=== PATIENT | female | born 1940 | race Caucasian/White ===

== ENCOUNTER 2021-08-09 07:56 | Outpatient (CLI) | payer MEDICARE, SELFPAY ==
[2021-08-09 08:21] LABS: Basophils Absolute Auto 0.04 K/mm3 (0.00-0.10); Basophils Percent Auto 0.5 % (0.0-1.0); Eosinophils Absolute Auto 0.14 K/mm3 (0.02-0.50); Eosinophils Percent Auto 1.9 % (1.0-6.0); Hematocrit 44.3 % (35.0-42.0); Hemoglobin 14.2 g/dL (11.7-13.8); Immature Granulocyte Absolute 0.03 K/mm3 (0.00-0.00); Immature Granulocyte Percent A 0.4 % (0.0-0.0); Lymphocytes Percent Auto 17.4 % (18.0-42.0); Mean Corpuscular HGB Conc 32.1 g/dL (32.0-36.0); Mean Corpuscular Hemoglobin 28.6 pg (27.0-31.0); Mean Corpuscular Volume 89.3 fL (78.0-102.0); Monocytes Absolute Auto 0.47 K/mm3 (0.10-0.90); Monocytes Percent Auto 6.3 % (2.0-11.0); Neutrophils Absolute Auto 5.5 K/mm3 (1.7-7.2); Neutrophils Percent Auto 73.5 % (50.0-70.0); Platelet Count Result 172 K/mm3 (150-420); Red Blood Count 4.96 M/mm3 (4.20-5.40); Red Cell Distribution Width 13.3 % (11.6-14.4); White Blood Count 7.5 K/mm3 (4.8-10.8)
[2021-08-09 09:34] LABS: Alanine Aminotransferase 20 U/L (14-59); Albumin Level 3.7 g/dL (3.4-5.0); Alkaline Phosphatase 91 U/L (46-116); Anion Gap 5 mmol/L (8-16); Aspartate Amino Transferase 13 U/L (15-37); Bilirubin,Total 0.4 mg/dL (0.00-1.00); Blood Urea Nitrogen 14 mg/dL (7-18); Calcium 9.3 mg/dL (8.5-10.1); Carbon Dioxide 29 mmol/L (21-32); Chloride 105 mmol/L (98-108); Cholesterol 204 mg/dL (0-200); Estimated Glomerular Filt Rate > 60; Free T4 Free Thyroxine 0.88 ng/dL (0.76-1.46); Glucose 104 mg/dL (70-99); HDL Direct 49 mg/dL (40-60); LDL Cholesterol Calculated 136 mg/dL (<130); Osmolality Calculated 288 mOsm/kg (285-295); Potassium 4.1 mmol/L (3.5-5.1); Sodium 139 mmol/L (136-145); Thyroid Stimulating Hormone 1.99 uIU/mL (0.36-3.74); Triglycerides 97 mg/dL (0-150); Vitamin B12 650 pg/mL (193-986)
[2021-08-14 14:04] LABS: Vitamin D 25 Hydroxy 33 ng/mL (30-100)
== END 2021-08-09 07:57 | disposition home or self-care (01) ==
PROVIDERS: PCP Internal Medicine; Visit Provider Internal Medicine
DX: E78.5 Hyperlipidemia, unspecified (principal); F03.90 Unspecified dementia, unspecified severity, without behavioral disturbance, psychotic disturbance, mood disturbance, and anxiety; E55.9 Vitamin D deficiency, unspecified; I10 Essential (primary) hypertension
CPT/HCPCS: 36415; 80053; 80061; 82306; 82607; 84439; 84443; 85025

== ENCOUNTER 2024-03-03 15:43 | Outpatient (CLI) | payer MEDICARE, SELFPAY ==
[2024-03-03 16:02] LABS: Basophils Percent Auto 0.4 % (0.2-1.2); Eosinophils Absolute Auto 0.1 K/mm3 (0-0.3); Eosinophils Percent Auto 1.7 % (0-4.4); Hematocrit 40.8 % (37.0-47.0); Hemoglobin 12.8 g/dL (12.0-15.0); Immature Granulocyte Absolute 0.02 K/mm3 (0.00-0.031); Immature Granulocyte Percent A 0.2 % (0-0.5); Lymphocytes Absolute Auto 1.63 K/mm3 (0.9-3.2); Lymphocytes Percent Auto 19.6 % (18.3-44.2); Mean Corpuscular HGB Conc 31.4 g/dl (32-36); Mean Corpuscular Hemoglobin 29.3 pg (26-34); Mean Corpuscular Volume 93.4 fl (80-100); Mean Platelet Volume 11.9 fl (7.4-10.4); Monocytes Absolute Auto 0.6 K/mm3 (0.1-0.6); Monocytes Percent Auto 7.2 % (2.6-8.5); Neutrophils Absolute Auto 5.9 K/mm3 (1.3-6.7); Neutrophils Percent Auto 70.9 % (45.5-73.1); Platelet Count Result 179 k/mm3 (150-375); Red Blood Count 4.37 M/mm3 (4.2-5.4); Red Cell Distribution Width 13.1 % (11.5-14.5); White Blood Count 8.3 K/mm3 (4.5-10.0)
[2024-03-03 16:52] LABS: Iron 69 ug/dL (37-170)
[2024-03-03 16:57] LABS: Alanine Aminotransferase 27 U/L (6-35); Albumin Level 4.3 g/dL (3.5-5.1); Alkaline Phosphatase 99 U/L (38-126); Anion Gap 8 mmol/L (4-12); Aspartate Amino Transferase 27 U/L (14-36); Bilirubin,Total 0.5 mg/dL (0.2-1.3); Blood Urea Nitrogen 19 mg/dL (7-17); Calcium 9.6 mg/dL (8.4-10.2); Carbon Dioxide 27 mmol/L (22-30); Chloride 105 mmol/L (98-107); Estimated Glomerular Filt Rate > 60; Glucose 102 mg/dL (65-110); Potassium 4.1 mmol/L (3.4-5.0); Sodium 140 mmol/L (137-145)
[2024-03-03 17:01] LABS: Percent Iron Saturation 21 % (20-50)
[2024-03-03 18:16] LABS: Folic Acid > 20.0 ng/mL (2.76->20)
[2024-03-06 21:48] LABS: Platelet Antibody, Direct NEGATIVE (NEGATIVE)
[2024-03-07 05:34] LABS: Methylmalonic Acid 137 nmol/L (85-423)
[2024-03-07 14:38] LABS: Soluble Transferrin Receptor 1.57 mg/L (0.76-1.76)
== END 2024-03-03 15:44 | disposition home or self-care (01) ==
LOC: ANHLAB 15:46
PROVIDERS: PCP Internal Medicine; Visit Provider Internal Medicine Hematology & Oncology
DX: D64.9 Anemia, unspecified (principal); D69.59 Other secondary thrombocytopenia
CPT/HCPCS: 36415; 80053; 82607; 82728; 82746; 83540; 83550; 83921; 84238; 85025; 86023

== ENCOUNTER 2024-10-12 11:00 | Emergency (ER) | payer MEDICARE, SELFPAY ==
[2024-10-12] VITALS (21 sets, daily range): BP systolic 128–154; BP diastolic 47–70; PULSE 54–69; RESP 12–25; TEMP 36.7; O2SAT 100
--- NOTE | ~2024-10-12 | CT_ITS ---
EXAMINATION: CTA abdomen pelvis DATE: 10/12/2024 13:22 CDT INDICATION: Black diarrhea for days. TECHNIQUE: Computed tomographic angiography (CTA) of the abdomen and pelvis was performed without and with 100 mL Omnipaque-350 intravenous contrast. The dose- length product was 305.96 mGy-cm. Maximum intensity projection 3D- reconstructions of the aorta and other arteries were constructed by the techno logist on a separate workstation. COMPARISON: None. FINDINGS: Small groundglass opacities in the lower lobes. 5 mm calcified granuloma in the left lower lobe. The spleen is heterogeneous presumably due to the timing of the contrast bolus. Liver, adrenal glands, pancreas and kidneys are unremarkable. Gallbladder is absent. Abdominal aorta is partially calcified but is not aneurysmal. No enlarged lymph nodes in the abdomen or pelvis. Bladder is unremarkable. Mild diverticulosis in the sigmoid colon. Appendix is not definitely identified. Thickening of the andino of the ascending colon. No dilated bowel loops. Bones appear osteopenic. Multilevel degenerative change in the visualized spine. Indeterminant 2.2 cm sclerotic lesion in the right sacrum. Differential includes bone island or metastatic bone lesion. Total body bone scan is recommended. Grade 1 anterolisthesis of 3 on L4. Thickening of the rectal andino. CTA: No abdominal aortic aneurysm. Moderate amount of calcified and noncalcified plaque in the abdominal aorta. The celiac artery is widely patent. Visualized branches of the celiac artery are widely patent. Tiny amount of calcified plaque at the origin of the superior mesenteric artery. Visualized branches is the superior mesenteric artery are widely patent. Inferior mesenteric artery is patent. Single bilateral renal arteries. Tiny amount of calcified plaque at the origins of the bilateral renal arteries. The bilateral common iliac arteries, internal and external iliac arteries, common femoral arteries are grossly patent with a small amount of atherosclerotic disease. IMPRESSION: 1. Thickening of the andino of the ascending colon. Differential includes incomplete bowel wall distention or colitis. Recommend follow-up to resolution to exclude an underlying mass. 2. Thickening of the rectal andino. Differential includes incomplete rectal wall distention, proctitis or mass. 3. Indeterminant 2.2 cm sclerotic lesion in the right sacrum. Differential includes bone island or metastatic bone lesion. Total body bone scan is recommended. 4. Grade 1 anterolisthesis of 3 on L4. Findings as above. Reviewed, dictated and finalized at location A. IMPRESSION: 1. Thickening of the andino of the ascending colon. Differential includes incomp lete bowel wall distention or colitis. Recommend follow-up to resolution to exc lude an underlying mass. 2. Thickening of the rectal andino. Differential includes incomplete rectal wall distention, proctitis or mass. 3. Indeterminant 2.2 cm sclerotic lesion in the right sacrum. Differential incl udes bone island or metastatic bone lesion. Total body bone scan is recommended . 4. Grade 1 anterolisthesis of 3 on L4. Findings as above.
--- OUTSIDE RECORDS SUMMARY | 2024-10-12 11:35 | XMS_ITS | Clinical Summary ---
Author Organization [facility] Eliseo De Leon Address [address] [place] [address] Care Team Providers Care Naval Science Teacher Name Role Phone Celestino Santiago MD Primary Care Provider [phone] Allergies No known active allergies Medications citalopram (CeleXA) 20 mg tablet Take 20 mg by mouth daily. 12/28/2023 Active LORazepam (ATIVAN) 1 mg tablet Take 1 mg by mouth 1 time daily as needed. 03/02/2024 Active metoprolol tartrate (LOPRESSOR) 25 mg tablet Take 25 mg by mouth daily. 01/08/2024 Active rosuvastatin (CRESTOR) 5 mg tablet Take 5 mg by mouth daily. 12/28/2023 Active donepeziL (ARICEPT) 5 mg tablet Take 10 mg by mouth daily at bedtime. Active diclofenac (SOLARAZE) 3 % gel Apply to affected area 2 times daily. Active diphenhydrAMINE (BENADRYL) 25 mg tablet Take 25 mg by mouth every 6 hours as needed for Allergies. Active loperamide (IMODIUM) 2 mg Tablet Take 2 mg by mouth every 4 hours as needed for Diarrhea/Loos e Stools. Active nystatin (MYCOSTATIN) 100,000 unit/gram Cream Apply to affected area 2 times daily. Active acetaminophen (TYLENOL) 500 mg tablet Take 1,000 mg by mouth every 6 hours as needed for Pain. Active calcium-choleca lciferol (OS-AALIYAH 500+D) 500 mg-5 mcg (200 unit) tablet Take 1 Tablet by mouth daily. Active Active Problems No known active problems Encounters Date Type Department Care Team Description 10/11/2024 External Device Data [facility] ABSTRACTION Provider, Abstract 09/29/2024 Telephone [facility] Oncology and Hematology - [facility] [place] [phone] Kb Carpio MD labs for appt 09/28/2024 External Device Data [facility] ABSTRACTION Provider, Abstract 09/07/2024 External Device Data [facility] ABSTRACTION Provider, Abstract 09/07/2024 External Device Data [facility] ABSTRACTION Provider, Abstract 09/07/2024 External Device Data [facility] ABSTRACTION Provider, Abstract 09/06/2024 External Device Data [facility] ABSTRACTION Provider, Abstract 08/10/2024 External Device Data [facility] ABSTRACTION Provider, Abstract 08/09/2024 External Device Data [facility] ABSTRACTION Provider, Abstract 07/14/2024 External Device Data [facility] ABSTRACTION Provider, Abstract 07/13/2024 External Device Data [facility] ABSTRACTION Provider, Abstract 07/12/2024 External Device Data [facility] ABSTRACTION Provider, Abstract from Last 3 Months Family History Medical History Relation Name Comments Heart Disease Brother Diabetes Child 1 Arthritis-rheumatoid Child 2 Atrial fibrillation Child 2 SLE Child 2 No Known Problems Child 3 No Known Problems Child 4 Cancer Father Heart Disease Father No Known Problems Mother Colon Cancer Sister 1 Brain Cancer Sister 2 Relation Name Status Comments Brother Child 1 Alive Child 2 Alive Child 3 Alive Child 4 Alive Father Mother Sister 1 Sister 2 Alive Social History Tobacco Use Types Packs/Day Years Used Date Smoking Tobacco: Never Smokeless Tobacco: Never Tobacco Cessation:Counseling Given: Not Answered Alcohol Use Standard Drinks/Week Comments Never 0 (1 standard drink = 0.6 oz pur e alcohol) Comments Unknown Sex and Gender Information Value Date Recorded Sex Assigned at Not on file Legal Sex Female 2:34 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 Gender Identity Not on file Sexual Orientation Not on file Last Filed Vital Signs Vital Sign Reading Time Taken Comments Blood Pressure 136/65 04/01/2024 12:07 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 Pulse 60 04/01/2024 12:07 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 Temperature 36.6 C (97.9 F) 04/01/2024 12:07 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 Respiratory Rate 16 04/01/2024 12:07 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 Oxygen Saturation 96% 04/01/2024 12:07 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 Inhaled Oxygen Concentration - - Weight 58.5 kg (129 lb) 04/01/2024 12:07 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 Height 165.1 cm (5' 5) 03/03/2024 3:05 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 Body Mass Index 21.47 03/03/2024 3:05 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 Plan of Treatment Health Maintenance Due Date Last Done Comments ZOSTER VACCINE (1 of 2) 09/10/1991 OSTEOPOROSIS SCREENING 2006 RSV VACCINE (60+ or ) (1 - 1-dose 75+ series) 2016 PNEUMOCOCCAL VACCINE 50+ YEA RS (2 of 2 - PCV20 or PCV21) 04/08/2023 04/08/2022 INFLUENZA VACCINE (#1) 2024 DTAP/TDAP/TD VACCINES (2 - Td or Tdap) 08/20/2033 Insurance MEDICARE PART A AND B [employer] MEDICARE SUPP AESSI Advance Directives For more information, please contact: [phone] Documents on File Type Date Recorded Patient Inventory Associate And Driver Expl anation Advance Directive POA 04/04/2024 10:02 AM Advance Directive POA Care Teams Naval Science Teacher Relationship Specialty Start Date End Date Celestino Santiago MD [address] [facility] [address] [place] [id number] PCP - General Internal Medicine 04/01/24
--- OUTSIDE RECORDS SUMMARY | 2024-10-12 11:36 | XMS_ITS | Patient Health Record ---
Author Organization [facility] Address [address] [place] [id number] Care Team Providers Care Ehr Trainer Name Role Phone NAS BRAGA Primary Care Provider CARMELITARONIMAHENDRA Unavailable [phone] Tammy Pozo Unavailable [phone] Marlen Randhawa Unavailable [phone] Sonal North Unavailable [phone] Francisca Dawn Unavailable [phone] Winifred Camargo Unavailable [phone] Allergies No Known Allergies Results Component Value Reference Range Notes Carbon Monoxide, Blood Reviewed date:05/31/2024 12:31:11 PM Interpretation: Performing Lab: Notes/Report: CBC With Differential/Platel et Reviewed date:05/11/2024 02:52:06 PM Interpretation: Performing Lab: Notes/Report: Vitamin D, 25-Hydroxy Reviewed date:05/11/2024 02:52:17 PM Interpretation: Performing Lab: Notes/Report: Basic Metabolic Panel (8) Reviewed date:05/31/2024 12:30:31 PM Interpretation: Performing Lab: Notes/Report: Reason For Referral Reason annual eye exam Diagnosis 1 Encounter for Medica re annual wellness exam (Z00.00) Referral Organization [facility] Referring Provider First Name Tammy Referring Provider Last Name Nohelia Referred Provider Specialty Seo Executive Referral Priority Routine Reason Low platelets Diagnosis 1 Thrombocytopenia, un specified (D69.6) Referral Organization [facility] Referring Provider First Name NAS Referring Provider Last Name MARIA LUZ Referring Provider Speciality Internal M edicine Referred Organization [facility] Referred Address [address],[place], [place],[address], Referred Provider Specialty Hematology Referral Priority Routine Medications Medication SIG (Take, Route, Frequency, Duration) Notes Start Date End Date Status Donepezil HCl 5 MG Tablet TAKE 1 TABLET BY MOUTH EVERY DAY; Duration: 90 Unknown LORazepam 1 MG Tablet 1 tablet orally every 8 hours As needed 09/23/2024 Active diphenhydrAMINE HCl 25 MG Capsule 1 capsule as needed Orally every 4 hours Unknown Rosuvastatin Calcium 5 MG Tablet TAKE 1 TABLET BY MOUTH EVERY DAY; Duration: 90 days Active Shingrix 50 MCG/0.5ML Suspension Reconstituted as directed Intramuscular 11/15/2023 Unknown Prevnar 20 0.5 ML Suspension Prefilled Syringe as directed Intramuscular 11/15/2023 Unknown Vitamin D (Ergocalciferol) 1.25 MG (98230 UT) Capsule TAKE 1 CAPSULE BY MOUTH EVERY THURSDAY; Duration: 84 Active Diclofenac Sodium 3 % Gel 1 application Externally Q24H As needed Unknown Citalopram Hydrobromide 20 MG Tablet TAKE 1 TABLET BY MOUTH EVERY DAY; Duration: 90 days Active Tacrolimus 0.03 % Ointment 1 application Externally Once a day Unknown Xogyszu-Buarvy-Galon Pertussis 5-2.5-18.5 LF-MCG/0.5 Suspension Prefilled Syringe as directed Intramuscular 11/15/2023 Unknown Metoprolol Tartrate 25 MG Tablet 1 tablet with food Orally once a day; Duration: 30 days Unknown Problems Problem Type SNOMED Code ICD Code Onset Dates Problem Status W/U Status Risk Notes Problem Thrombocytopenia (877327178) Thrombocytopenia, unspecified (D69.6) Active confirmed Problem Moderate recurrent major depression (98770585) Major depressive disorder, recurrent, moderate (F33.1) Active confirmed Problem Essential hypertensi on (83886356) Essential (primary) hypertension (I10) Active confirmed Problem Pure hypercholesterolemia (208263121) Pure hypercholesterolemi a, unspecified (E78.00) Active confirmed Problem COVID-19 (356772056) COVID-19 (U07.1) Active co nfirmed Problem hypercholesterolemia (disorder) (98467946) Hypercholesteremia (E78.00) Active confirmed Problem Dementia (90109631) Unspecified dementia, unspecified severity, without behavioral disturbance, psychotic disturbance, mood disturbance, and anxiety (F03.90) Active confirmed Problem Vitamin D deficiency (79787138) Vitamin D deficiency (E55.9) Active confirmed Problem Hyperlipidemia (45312647) Hyperlipidemia (E78.5) Active confirmed Problem Constipation (66457883) Constipation, unspecified constipation type (K59.00) Active confirmed Problem Fall () Fall, initial encounter (W19.XXXA) Active confirmed Problem Thin build (42491075) Thin build (R68.89) Active confirmed Problem Mild dementia (disorder) (813100848765824) Mild dementia without behavioral disturbance, psychotic disturbance, mood disturbance, or anxiety, unspecified dementia type (F03.A0) Active confirmed Problem Generalized anxiety disorder (28813087) Anxiety, generalized (F41.1) Active confirmed Vital Signs Heart Rate 68 /min 05/04/2024 Temperature 97.7 degrees Fahrenheit 05/04/2024 Respiratory Rate 16 /min 05/04/2024 Oximetry 99 % 10/31/2023 Blood pressure diastolic 72 mm Hg 05/04/2024 Weight-kg 56.25 kg 10/31/2023 Blood pressure systolic 120 mm Hg 05/04/2024 Weight 124 lbs 10/31/2023 Encounters Encounter Location Date Provider Diagnosis [address] [place] [address] 10/28/2023 Marlen Pendegraft Essential (primary) hypertension I10 ; Mild dementia without behavioral disturbance, psychotic disturbance, mood disturbance, or anxiety, unspecified dementia type F03.A0 ; Major depressive disorder, recurrent, moderate F33.1 ; Hyperlipidemia E78.5 and Vitamin D deficiency E55.[address] [place] [address] 10/31/2023 Tammy Pozo Encounter for Medica re annual wellness exam Z00.00 ; Depression screening Z13.31 ; Encounter for immunization Z23 ; Need for pneumococcal vaccine Z23 ; Need for Tdap vaccination Z23 ; Screening for cholesterol level Z13.220 ; Encounter for screening colonoscopy Z12.11 ; Screening mammogram for breast cancer Z12.31 and Screening for osteoporosis Z13.[address] [place] [address] 02/03/2024 Marlen Pendegraft Essential (primary) hypertension I10 ; Hyperlipidemia E78.5 ; Mild dementia without behavioral disturbance, psychotic disturbance, mood disturbance, or anxiety, unspecified dementia type F03.A0 ; Major depressive disorder, recurrent, moderate F33.1 ; Vitamin D deficiency E55.9 and Anxiety, generalized F41.1 [facility] [address] [place] [address] [place] [address] 05/04/2024 Marlen Pendegraft Essential (primary) hypertension I10 ; Hyperlipidemia E78.5 ; Mild dementia without behavioral disturbance, psychotic disturbance, mood disturbance, or anxiety, unspecified dementia type F03.A0 ; Major depressive disorder, recurrent, moderate F33.1 ; Vitamin D deficiency E55.9 and Anxiety, generalized F41.1 [facility] [address] [place] [address] [place] [address] 10/30/2023 Marlen Pendegraft [facility] [address] [place] [address] [place] [address] 02/19/2024 Sonal [facility] [address] [place] [address] [place] [address] 02/26/2024 Marlen Pendegraft [facility] [address] [place] [address] [place] [address] 03/01/2024 Marlen Pendegraft [facility] [address] [place] [address] [place] [address] 04/07/2024 NAS [facility] [address] [place] [address] [place] [address] 04/14/2024 NAS [facility] [address] [place] [address] [place] [address] 04/14/2024 Marlen Pendegraft [facility] [address] [place] [address] [place] [address] 05/23/2024 Marlen Pendegraft [facility] [address] [place] [address] [place] [address] 07/13/2024 NAS [facility] [address] [place] [address] [place] [address] 08/23/2024 MAHENDRA [facility] [address] [place] [address] [place] [address] 09/06/2024 [facility] [address] [id number] 09/23/2024 Francisca Dawn Assessments Encounter Date Diagnosis (ICD Code) Assessment Notes Treatment Notes Treatment Clinical Notes Section Notes 05/04/2024 Essential (primary) hypertension (ICD-10 - I10) chronic/stable continue metoprolol 05/04/2024 Hyperlipidemia (ICD-10 - E78.5) chronic/stable continue crestor FLP reviewed from 08/10 chol 141 HDL 56 LDL 66.6 02/03/2024 Essential (primary) hypertension (ICD-10 - I10) chronic/stable continue metoprolol 08/10 BMP reviewed sodium 142, K 4.5, BUn 20 creat0.8 GFR 88 02/03/2024 Hyperlipidemia (ICD-10 - E78.5) chronic/stable continue crestor FLP reviewed from 08/10 chol 141 HDL 56 LDL 66.6 10/31/2023 Encounter for Medicare annual wellness exam (ICD-10 - Z00.00) Reviewed labs vaccines mammogram colonoscopy eye exam 10/31/2023 Depression screening (ICD-10 - Z13.31) Will continue to monitor 10/28/2023 Essential (primary) hypertension (ICD-10 - I10) chronic/stable continue metoprolol 08/10 BMP reviewed sodium 142, K 4.5, BUn 20 creat0.8 GFR 88 10/31/2023 Encounter for immunization (ICD-10 - Z23) 10/28/2023 Mild dementia without behavioral disturbance, psychotic disturbance, mood disturbance, or anxiety, unspecified dementia type (ICD-10 - F03.A0) chronic progressive A&O to person increase aricept to 10mg 02/03/2024 Mild dementia without behavioral disturbance, psychotic disturbance, mood disturbance, or anxiety, unspecified dementia type (ICD-10 - F03.A0) chronic progressive A&O to person continue aricept 05/04/2024 Mild dementia without behavioral disturbance, psychotic disturbance, mood disturbance, or anxiety, unspecified dementia type (ICD-10 - F03.A0) chronic progressive A&O to person continue aricept 05/04/2024 Major depressive disorder, recurrent, moderate (ICD-10 - F33.1) chronic/stable continue celexa 02/03/2024 Major depressive disorder, recurrent, moderate (ICD-10 - F33.1) chronic/stable continue celexa 10/31/2023 Need for pneumococcal vaccine (ICD-10 - Z23) 10/28/2023 Major depressive disorder, recurrent, moderate (ICD-10 - F33.1) chronic/stable continue celexa 10/28/2023 Hyperlipidemia (ICD-10 - E78.5) chronic/stable continue crestor FLP reviewed from 08/10 chol 141 HDL 56 LDL 66.6 10/31/2023 Need for Tdap vaccination (ICD-10 - Z23) 02/03/2024 Vitamin D deficiency (ICD-10 - E55.9) stable continue vitamin d 82690/weekly vitamin d level reviewed from 08/10 61 05/04/2024 Vitamin D deficiency (ICD-10 - E55.9) stable continue vitamin d 45484/weekly 05/04/2024 Anxiety, generalized (ICD-10 - F41.1) chronic/stable continue ativan 10/31/2023 Screening for cholesterol level (ICD-10 - Z13.220) Was drawn 08/11/23 02/03/2024 Anxiety, generalized (ICD-10 - F41.1) chronic/stable continue ativan 10/28/2023 Vitamin D deficiency (ICD-10 - E55.9) stable continue vitamin d 46176/weekly vitamin d level reviewed from 08/10 61 10/31/2023 Encounter for screening colonoscopy (ICD-10 - Z12.11) She states that she doesn't want one 10/31/2023 Screening mammogram for breast cancer (ICD-10 - Z12.31) Says last one was 2 yrs ago and if she felt she needed one she'd have her daughter take her 10/31/2023 Screening for osteoporosis (ICD-10 - Z13.820) I don't know that I need one 02/03/2024 Other f/u in 3 months sooner if needed nursing to notify of acute changes or concerns obtain BMP CBC 10/28/2023 Other f/u in 3 months sooner if needed nursing to notify of acute changes or concerns 05/04/2024 Other f/u in 3 months sooner if needed nursing to notify of acute changes or concerns obtain BMP CBC Vit D refer to facility EHR for current medication list Plan Of Treatment Pending Test Test Name Order Date Cologuard 02/11/2023 Insurance Providers Payer Name Payer Address Payer Phone Subscriber Number Group Number Insured Name Patient Relationship to Insured Coverage Start Date Coverage End Date Medicare of [place] [address] TAQUERIA SIMMONS [id number] Fabiola Wong Self - patient is the insured Medical (General) History Medical History History ICD Code Essential (primary) hypertension I10 Pain in unspecified knee M25.569 Rash and other nonspecific skin eruption R21 Pure hypercholesterolemia, unspecified E 78.00 Unspecified dementia, unspec ified severity, without behavioral disturbance, psychotic disturbance, mood disturbance, and anxiety F03.90
--- OUTSIDE RECORDS SUMMARY | 2024-10-12 11:36 | XMS_ITS | Encounter Summary ---
Author Organization [employer] Address [address] [place] [address] Care Team Providers Care Credit Collections Rep Name Role Phone Celestino Santiago MD Primary Care Provider Encounter Details Date Type Department Care Team (Late st Contact Info) Description 10/11/2024 External Device Data [facility] ABSTRACTION Provider, Abstract NO ADDRESS ON FILE Social History Tobacco Use Types Packs/Day Years Used Date Smoking Tobacco: Never Smokeless Tobacco: Never Alcohol Use Standard Drinks/Week Comments Never 0 (1 standard drink = 0.6 oz pur e alcohol) Comments Unknown Sex and Gender Information Value Date Recorded Sex Assigned at Not on file Legal Sex Female 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
--- OUTSIDE RECORDS SUMMARY | 2024-10-12 11:36 | XMS_ITS | Clinical Summary ---
Author Organization [facility] Address [address] [facility], [place] [address] Phone Care Team Providers Care Final Inspector Motorcyles Name Role Phone Martinez Chan MD Primary Care Provider [phone] Allergies Active Allergy Reactions Criticality Noted Date Comments Sulfamethoxazole-Trimethoprim Hives,Swelling Cefuroxime Hives,Swelling 05/04/2015 Phenytoin Hives,Swelling 05/04/2015 Escitalopram Hives 05/04/2015 Penicillins Hives,Swelling 05/04/2015 Medications ZETIA 10 MG Tablet 1 Tab daily. 01/25/2015 Active pantoprazole (PROTONIX) 40 MG Tablet Delayed Response 1 Tab daily. 03/18/2015 Active LORazepam (ATIVAN) 1 MG Tablet 1 Tab nightly. 05/01/2015 Active metoprolol tartrate (LOPRESSOR) 25 MG Tablet 1 Tab 2 times daily. 05/01/2015 Active cetirizine (ZYRTEC) 10 MG Tablet Take 10 mg by mouth nightly. Active indomethacin (INDOCIN) 25 MG Capsule Take 1 Cap by mouth every 12 hours as needed. 10 Cap 2 05/04/2015 Active gabapentin (NEURONTIN) 300 MG CapsuleIndicati ons:Trigeminal neuralgia of right side of face Start 1 cap PO q pm x 3 days, then 1 tab PO bid x 3 days, then increase to 1 cap tid 90 Cap 1 09/25/2015 Active Active Problems Problem Noted Date Diagnosed Date Primary stabbing headache 05/04/2015 Family History Medical History Relation Name Comments Cancer Father No Known Problems Maternal Grandfather No Known Problems Maternal Grandmother No Known Problems Mother No Known Problems Paternal Grandfather No Known Problems Paternal Grandmother Cancer Sister Relation Name Status Comments Father Maternal Grandfather Maternal Grandmother Mother Paternal Grandfather Paternal Grandmother Sister Social History Tobacco Use Types Packs/Day Years Used Date Smoking Tobacco: Never Smokeless Tobacco: Never Tobacco Cessation:Counseling Given: Yes Alcohol Use Standard Drinks/Week Comments No 0 (1 standard drink = 0.6 oz pur e alcohol) Comments No Sex and Gender Information Value Date Recorded Sex Assigned at Not on file Legal Sex Female 12:57 PM 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 Gender Identity Not on file Sexual Orientation Not on file Last Filed Vital Signs Vital Sign Reading Time Taken Comments Blood Pressure 130/72 09/25/2015 11:25 AM CDT Pulse 65 09/25/2015 11:25 AM CDT Temperature 35.6 C (96 F) 09/25/2015 11:25 AM CDT Respiratory Rate 16 05/04/2015 2:24 PM HEADING MAKER Oxygen Saturation 90% 09/25/2015 11:25 AM CDT Inhaled Oxygen Concentration - - Weight 62.6 kg (138 lb) 09/25/2015 11:25 AM CDT Height 165.1 cm (5' 5) 09/25/2015 11:25 AM CDT Body Mass Index 22.96 09/25/2015 11:25 AM CDT Plan of Treatment Health Maintenance Due Date Last Done Comments Hepatitis C Virus (HCV) Screening 1940 TdaP Immunization 1940 Pneumococcal Immunization (5 0+ years) (1 of 1 - PCV) 09/10/1991 Zoster Immunization (1 of 2) 09/10/1991 Respiratory Syncytial Virus (RSV) Immunization (Adult) (1 - 1-dose 75+ series) 2016 SARS-COV-2 Immunization ( - 2023- season) 2023 Influenza Immunization (#1) 2024 Hepatitis B Immunization Aged Out No longer eligible based on patient's age to complete this topic Human Papillomavirus (HPV) Immunization Aged Out No longer eligible b ased on patient's age to complete this topic Meningococcal Immunization (ACWY) Aged Out No longer eligible based on patient's age to complete this topic Rotavirus Immunization Aged Out No lo nger eligible based on patient's age to complete this topic Insurance MEDICARE Care Teams Final Inspector Motorcyles Relationship Specialty Start Date End Date Martinez Chan MD [address] [place] [address] PCP - General Family Medicine 04/16/15
--- OUTSIDE RECORDS SUMMARY | 2024-10-12 11:36 | XMS_ITS | Clinical Summary ---
Author Organization [facility] Address [address] [place] [address] Care Team Providers Care Sleep Manager Name Role Phone Celestino Santiago MD Primary Care Provider [phone] Allergies No known active allergies Medications citalopram (CELEXA) 20 MG tablet Take 1 tablet (20 mg total) by mouth daily. Active rosuvastatin (CRESTOR) 5 MG tablet Take 1 tablet (5 mg total) by mouth nightly at bedtime. Active donepezil (ARICEPT) 5 MG Tab Take 1 tablet (5 mg total) by mouth nightly at bedtime. Active LORazepam (ATIVAN) 1 MG tablet Take 1 tablet (1 mg total) by mouth nightly at bedtime. Active vitamin D2, ergocalciferol, (DRISDOL) 1.25 mg capsule Take 1 capsule (1.25 mg total) by mouth every 7 days. Active diphenhydrAMINE (BENADRYL) 25 MG capsule Take 1 capsule (25 mg total) by mouth every 4 (four) hours as needed for Itching. Active mirtazapine (REMERON) 15 MG tablet Take 1 tablet (15 mg total) by mouth nightly at bedtime. Give 1 tablet by mouth in the evening Active metoprolol tartrate (LOPRESSOR) 25 MG tabletIndications :Primary hypertension Take 1 tablet (25 mg total) by mouth daily. 60 tablet 3 Active Active Problems Problem Noted Date Diagnosed Date Vitamin D deficiency 08/15/2022 Depression 07/29/2022 Heart disease 07/29/2022 Primary hypertension 07/29/2022 Pure hypercholesterolemia 07/29/2022 Unspecified dementia, unspec ified severity, without behavioral disturbance, psychotic disturbance, mood disturbance, and anxiety 07/29/2022 Resolved Problems Problem Noted Date Diagnosed Date Resolved Date Hyperlipidemia 07/29/2022 08/15/2022 Immunizations Immunization Administration Dates Next Due Influenza Adult (Generic) 04/08/2022 Pneumococcal (Prevnar 13) 04/08/2022 Tdap (Boostrix) 08/21/2023 Family History Medical History Relation Comments Alcohol Abuse Brother Cancer Father Diabetes Father Early Hearing Loss Father Stroke Father Asthma Mother COPD Mother Early Hearing Loss Mother Cancer Sister 1 Early Hearing Loss Sister 1 Early Hearing Loss Sister 2 Asthma Son Defects Son Relation Status Comments Brother Father Mother Sister 1 Sister 2 Alive Son Social History Tobacco Use Types Packs/Day Years Used Date Smoking Tobacco: Never Smokeless Tobacco: Never Tobacco Cessation:Counseling Given: Not Answered Alcohol Use Standard Drinks/Week Comments Never 0 (1 standard drink = 0.6 oz pur e alcohol) Comments No Sex and Gender Information Value Date Recorded Sex Assigned at Not on file 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 Gender Identity Not on file Sexual Orientation Not on file Last Filed Vital Signs Vital Sign Reading Time Taken Comments Blood Pressure 140/86 08/21/2023 1:28 PM CDT Pulse 72 08/21/2023 1:28 PM CDT Temperature 36.6 C (97.9 F) 08/21/2023 10:09 AM CDT Respiratory Rate 16 08/21/2023 1:28 PM CDT Oxygen Saturation 100% 08/21/2023 1:28 PM CDT Inhaled Oxygen Concentration - - Weight 54 kg (119 lb) 08/21/2023 10:09 AM CDT Height 165.1 cm (5' 5) 08/21/2023 10:09 AM CDT Body Mass Index 19.8 08/21/2023 10:09 AM CDT Plan of Treatment Health Maintenance Due Date Last Done Comments Zoster Vaccines (1 of 2) 09/10/1991 Annual Medicare Wellness Visit 2006 Dexa Scan (General) 2006 RSV Immunization or 60+ Years (1 - 1-dose 75+ series) 2016 Pneumococcal Vaccine: 50+ Ye ars (2 of 2 - PPSV23) 04/08/2023 04/08/2022 COVID-19 Vaccine (1 - 2023-2 5 season) 2023 DTaP, Tdap and Td Vaccines ( 2 - Td or Tdap) 08/20/2033 08/21/2023 Meningococcal B Vaccine Aged Out No l onger eligible based on patient's age to complete this topic Meningococcal Vaccine Aged Out No kylie crystal eligible based on patient's age to complete this topic RSV Immunizations Under 20 Months Aged Out No longer eligible based on patient's age to complete this topic Insurance MEDICARE AET[employer] Advance Directives * DNR (Latest Code Status on File) Date Activated Date Inactivated Comments 07/29/2022 1:39 PM 11/13/2022 10:03 AM Care Teams Sleep Manager Relationship Specialty Start Date End Date Celestino Santiago MD PCP - General INTERNAL MEDICINE 11/13/22
[2024-10-12 12:09] LABS: Hematocrit 37.8 % (37.0-47.0); Hemoglobin 12.3 g/dL (12.0-15.0); Immature Granulocyte Percent A 0.5 % (0-0.5); Lymphocytes Absolute Auto 1.52 K/mm3 (0.9-3.2); Mean Corpuscular HGB Conc 32.5 g/dl (32-36); Mean Corpuscular Hemoglobin 29.6 pg (26-34); Mean Corpuscular Volume 91.1 fl (80-100); Nucleated Red Blood Cells Absolute Auto 0.000 K/mm3 (0.0-0.012); Nucleated Red Blood Cells Perc 0.0 % (0.0-0.2); Platelet Count Result 185 k/mm3 (150-375); Red Blood Count 4.15 M/mm3 (4.2-5.4); White Blood Count 7.9 K/mm3 (4.5-10.0)
[2024-10-12 12:16] LABS: INR 1.0; Prothrombin Time 13.5 Seconds (11.1-14.7)
[2024-10-12 12:18] LABS: Partial Thromboplastin Time 31.0 Seconds (22.3-36.8)
[2024-10-12 12:21] LABS: Alanine Aminotransferase 21 U/L (6-35); Albumin Level 4.3 g/dL (3.5-5.1); Alkaline Phosphatase 82 U/L (38-126); Anion Gap 7 mmol/L (4-12); Aspartate Amino Transferase 31 U/L (14-36); Bilirubin,Total 0.5 mg/dL (0.2-1.3); Blood Urea Nitrogen 18 mg/dL (7-17); Calcium 9.8 mg/dL (8.4-10.2); Carbon Dioxide 26 mmol/L (22-30); Chloride 106 mmol/L (98-107); Estimated CRCL calculation 41 ml/min; Estimated Glomerular Filt Rate > 60; Glucose 93 mg/dL (65-110); Potassium 4.4 mmol/L (3.4-5.0); Sodium 139 mmol/L (137-145); Total Protein 7.3 g/dL (6.3-8.2)
--- OUTSIDE RECORDS SUMMARY | 2024-10-12 12:27 | XMS_ITS | Clinical Summary ---
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
--- OUTSIDE RECORDS SUMMARY | 2024-10-12 12:27 | XMS_ITS | Encounter Summary ---
Author Organization [facility] Address 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 [address] [place] [id number] PCP - General Internal Medicine 04/01/24 documented as of this encounter
--- OUTSIDE RECORDS SUMMARY | 2024-10-12 12:27 | XMS_ITS | Clinical Summary ---
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
--- OUTSIDE RECORDS SUMMARY | 2024-10-12 12:27 | XMS_ITS | Clinical Summary ---
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 Gender Identity Not on file Sexual Orientation Not on file Last Filed Vital Signs Vital Sign Reading Time Taken Comments Blood Pressure 136/65 04/01/2024 12:07 PM PORTER HEAD Pulse 60 04/01/2024 12:07 PM PORTER HEAD Temperature 36.6 C (97.9 F) 04/01/2024 12:07 PM PORTER HEAD Respiratory Rate 16 04/01/2024 12:07 PM PORTER HEAD Oxygen Saturation 96% 04/01/2024 12:07 PM PORTER HEAD Inhaled Oxygen Concentration - - Weight 58.5 kg (129 lb) 04/01/2024 12:07 PM PORTER HEAD Height 165.1 cm (5' 5) 03/03/2024 3:05 PM PORTER HEAD Body Mass Index 21.47 03/03/2024 3:05 PM PORTER HEAD Plan of Treatment Health Maintenance Due Date [...] Advance Directives For more information, please contact: [phone] Documents on File Type Date Recorded 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 [address] [place] [phone] PCP - General Internal Medicine 04/01/24
[2024-10-12 12:36] LABS: Add Urine Microscopic? YES; Appearance Urine Clear (Clear); Glucose Urine UA Negative (Negative); Leukocyte Esterase Ur Trace LEU/UL (Negative); Nitrate Urine Negative (Negative); Non Pathogenic Casts 0-2; Specific Grav Ur 1.010 (1.001-1.035)
[2024-10-12] MEDS: SODIUM CHLORIDE 0.9% IV 1,000 ML 999 ML IV CONT (12:43)
--- NOTE | 2024-10-12 14:12 | ED.GENADULT ---
HPI - General Adult General Chief complaint: GI Bleed Stated complaint: black diarrhea Time Seen by Provider: 10/12/24 12:10 Source: family Mode of arrival: ambulatory Limitations: dementia History of Present Illness HPI narrative: 84-year-old with a history of dementia was brought in by daughter with a complains of having diarrhea and intermittent chest pain lasting for few seconds for past several days. He presently has no pain. She also stated that she is reportedly more confused. Denies any fever or chills no recent antibiotic use. [facility] staff reported that she had black stools this morning Onset (ago): day(s) (2) Severity: mild Relieving factors: none Exacerbating factors: none Related Data Home Medications ?Medication ?Instructions ?Recorded ?Confirmed ?Last Taken ?Type citalopram 20 mg tablet 20 mg PO DAILY 02/13/21 02/13/21 Unknown History donepezil 5 mg tablet 5 mg PO QHS 02/13/21 02/13/21 Unknown History ergocalciferol (vitamin D2) 1,250 1,250 mcg PO WEEKLY 02/13/21 02/13/21 Unknown History mcg (50,000 unit) capsule lorazepam 1 mg tablet 1 mg PO DAILY PRN 02/13/21 02/13/21 Unknown History metoprolol tartrate 25 mg tablet 25 mg PO BID 02/13/21 02/13/21 Unknown History Allergies Allergy/AdvReac Type Severity Reaction Status Date / Time phenytoin Allergy Severe RASH;FEVER Verified 10/12/24 11:15 Sulfa (Sulfonamide Allergy Severe THROAT & Verified 10/12/24 11:15 Antibiotics) TONGUE SWELLING Quinolones Allergy Intermediate hives,diaphoresis,heart Verified 10/12/24 11:15 pounding cefuroxime Allergy Unknown unknown Verified 10/12/24 11:15 levofloxacin Allergy Unknown Unknown Verified 10/12/24 11:15 penicillin G Allergy Unknown RASH Verified 10/12/24 11:15 quinidine Allergy Unknown unknown Verified 10/12/24 11:15 Scqtdwt-BXD-RrP Reductase Allergy Unknown LEG PAIN Verified 10/12/24 11:15 Inhibitor (Vuuecyv-Lqi-Sit Reductase Inhibitor) Review of Systems Review of Systems: ROS unobtainable: Yes unobtainable due to mental status (Dementia) PMFSH Past Medical History Medical History Arthritis of left knee Mitral valve prolapse Arthritis Anxiety Allergies Surgical History Surgical History History of arthroscopy of left knee Family History Family History Sibling Family history of alcohol abuse Son Family history of asthma Father Family history of cancer Sibling Family history of rheumatoid arthritis Carcinoma of colon Father Carcinoma of colon Other Cerebrovascular accident Depression Diabetes mellitus Social History Social History (System 12/29/23 @ 09:47 by Shanelle Nolen) Smoking status: Never smoker Alcohol intake: never Substance use: never Living arrangements: with family Occupation/Education: retired Gender identity (if verbalized by the patient): Female Exam Narrative: GENERAL: Well-appearing, well-nourished, and in no acute distress. HEAD: Normocephalic, atraumatic. EYES: PERRLA and EOMI. ENT: Nares clear, no rhinorrhea or epistaxis. Mucous membranes moist. NECK: Supple. CHEST: Clear to auscultation. No respiratory distress. HEART: Regular rate and rhythm. No murmur heard. Normal peripheral pulses. ABDOMEN: Soft, nontender, nondistended, normal active bowel sounds. EXTREMITIES: Normal range of motion. No edema. SKIN: Warm, dry, no rash. NEURO: No focal deficits. Alert and oriented x2 PSYCH: Normal mood and affect. Course Course Emergency Course: Patient comfortably resting in no discomfort informed her and her daughter about her lab work and CT findings. Daughter states that she feels more comfortable taking her back to assisted living facility rather being in the hospital . she is allergic to several antibitics , advised to take flagy as prescribed. Vital Signs Vital signs: Vital Signs Temperature 36.7 C 10/12/24 11:02 Pulse Rate 56 L 10/12/24 11:02 Respiratory Rate 13 10/12/24 11:02 Blood Pressure 136/64 10/12/24 11:02 Pulse Oximetry 100 10/12/24 11:02 Oxygen Delivery Room Air 10/12/24 11:02 Temperature 36.7 C 10/12/24 11:02 Pulse Rate 54 L 10/12/24 14:15 Respiratory Rate 17 10/12/24 14:15 Blood Pressure 130/56 L 10/12/24 13:01 Pulse Oximetry 100 10/12/24 12:02 Oxygen Delivery Room Air 10/12/24 11:02 Medical Decision Making Differential Diagnosis Differential Diagnosis: lower gi bleed , colitis , dehydration , uti Medical Records Medical records reviewed: Yes I reviewed the external patient's medical records. Vital Signs Vital Signs: Vital Signs Temperature 36.7 C 10/12/24 11:02 Pulse Rate 56 L 10/12/24 11:02 Respiratory Rate 13 10/12/24 11:02 Blood Pressure 136/64 10/12/24 11:02 Pulse Oximetry 100 10/12/24 11:02 Oxygen Delivery Room Air 10/12/24 11:02 Temperature 36.7 C 10/12/24 11:02 Pulse Rate 54 L 10/12/24 14:15 Respiratory Rate 17 10/12/24 14:15 Blood Pressure 130/56 L 10/12/24 13:01 Pulse Oximetry 100 10/12/24 12:02 Oxygen Delivery Room Air 10/12/24 11:02 Lab Data Lab results reviewed: Yes I reviewed the patient's lab results. 10/12/24 11:39 10/12/24 11:39 Labs: Lab Results 10/12/24 10/12/24 Range/Units 11:39 12:20 WBC 7.9 (4.5-10.0) K/mm3 RBC 4.15 L (4.2-5.4) M/mm3 Hgb 12.3 (12.0-15.0) g/dL Hct 37.8 (37.0-47.0) % MCV 91.1 (80-100) fl MCH 29.6 (26-34) pg MCHC 32.5 (32-36) g/dl RDW 13.3 (11.5-14.5) % Plt Count 185 (150-375) k/mm3 MPV 11.9 H (7.4-10.4) fl Immature Gran % (Auto) 0.5 (0-0.5) % Neut % (Auto) 70.4 (45.5-73.1) % Lymph % (Auto) 19.2 (18.3-44.2) % [place] % (Auto) 6.8 (2.6-8.5) % Eos % (Auto) 2.5 (0-4.4) % Baso % (Auto) 0.6 (0.2-1.2) % Lymph # (Auto) 1.52 (0.9-3.2) K/mm3 [place] # (Auto) 0.5 (0.1-0.6) K/mm3 Eos # (Auto) 0.2 (0-0.3) K/mm3 Baso # (Auto) 0.1 (0.0-0.1) K/mm3 Abs Immat Gran (auto) 0.04 H (0.00-0.031) K/mm3 Absolute Neuts (auto) 5.6 (1.3-6.7) K/mm3 Absolute Nucleated RBC 0.000 (0.0-0.012) K/mm3 Nucleated RBC % 0.0 (0.0-0.2) % PT 13.5 (11.1-14.7) Seconds INR 1.0 APTT 31.0 (22.3-36.8) Seconds Sodium 139 (137-145) mmol/L Potassium 4.4 (3.4-5.0) mmol/L Chloride 106 (98-107) mmol/L Carbon Dioxide 26 (22-30) mmol/L Anion Gap 7 (4-12) mmol/L BUN 18 H (7-17) mg/dL Creatinine 0.81 (0.7-1.0) mg/dL Estim Creat Clear Calc 41 ml/min Estimated GFR > 60 (59 - ) Glucose 93 (65-110) mg/dL Calcium 9.8 (8.4-10.2) mg/dL Total Bilirubin 0.5 (0.2-1.3) mg/dL AST 31 (14-36) U/L ALT 21 (6-35) U/L Alkaline Phosphatase 82 (38-126) U/L Total Protein 7.3 (6.3-8.2) g/dL Albumin 4.3 (3.5-5.1) g/dL Urine Color Yellow (Yellow) Urine Appearance Clear (Clear) Urine pH 8.5 (5.0-9.0) Ur Specific [place] 1.010 (1.001-1.035) Urine Protein Negative (Negative) mg/dL Urine Glucose (UA) Negative (Negative) mg/dL Urine Ketones Negative (Negative) mg/dL Ur Blood (Man) Negative (Negative) Urine Nitrate Negative (Negative) Urine Bilirubin Negative (Negative) Urine Urobilinogen 1.0 (<2.0) mg/dL Leukocyte Esterase Rfl Trace H (Negative) MICHAEL/UL Urine RBC 0-2 (0-2) /hpf Urine WBC 0-5 (0-3) /hpf Ur Squamous Epith Cells None seen (Few) /hpf Urine Bacteria None seen /hpf Urine Casts 0-2 Blood Type O Positive Antibody Screen Pending Antibody Identification Pending Antigen Identification Pending SILVINO, IgG Interpret Pending SILVINO, Poly Interpret Pending SILVINO, Complement Interp Pending Imaging Data Radiologist's impression: ITS Impressions Abdomen/Pelvis CTA 10/12/24 13:22 IMPRESSION: 1. Thickening of the andino of the ascending colon. Differential includes incomplete bowel wall distention or colitis. Recommend follow-up to resolution to exclude an underlying mass. 2. Thickening of the rectal andino. Differential includes incomplete rectal wall distention, proctitis or mass. 3. Indeterminant 2.2 cm sclerotic lesion in the right sacrum. Differential includes bone island or metastatic bone lesion. Total body bone scan is recommended. 4. Grade 1 anterolisthesis of 3 on L4. Findings as above. Discharge Plan Discharge Clinical Impression: Colitis Patient Disposition: NH Senior Care/Asst Living Condition: Stable Instructions: Antibiotic Form, Colitis (ED) Additional Instructions: drink more fluids as tolerated ,take antibiotic as presscribed. Patient Language: Citizen Of [place] Prescriptions: New levofloxacin 500 mg tablet 500 mg PO DAILY Qty: 5 0RF metronidazole 500 mg tablet 500 mg PO Q8H 5 Days Qty: 15 0RF No Action donepezil 5 mg tablet 5 mg PO QHS ergocalciferol (vitamin D2) 1,250 mcg (50,000 unit) capsule 1,250 mcg PO WEEKLY lorazepam 1 mg tablet 1 mg PO DAILY PRN metoprolol tartrate 25 mg tablet 25 mg PO BID citalopram 20 mg tablet 20 mg PO DAILY Follow-up/Referrals: Kb Carpio MD [Primary Care Provider, Hematology] Time of Disposition: 14:17
== END 2024-10-12 14:27 ==
PROVIDERS: Emergency Medicine; Emergency Provider Family Medicine; PCP Internal Medicine Hematology & Oncology
DX: K52.9 Noninfective gastroenteritis and colitis, unspecified (principal); R07.9 Chest pain, unspecified; F03.90 Unspecified dementia, unspecified severity, without behavioral disturbance, psychotic disturbance, mood disturbance, and anxiety; I34.1 Nonrheumatic mitral (valve) prolapse; M17.12 Unilateral primary osteoarthritis, left knee; F41.9 Anxiety disorder, unspecified; Z79.899 Other long term (current) drug therapy
CPT/HCPCS: 36415; 74174; 80053; 81001; 85025; 85610; 85730; 86850; 86880; 86900; 86901; 86902; 96360; 99284; J7030; Q9967